=== PATIENT | female | born 2005 | race Two or more races ===

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

== ENCOUNTER → 2024-05-21 | Outpatient (CLI) | payer BC | LOC: M PLAIMG 08:48 | PROVIDERS: ATTEND Nurse Practitioner Family | DX: M25.561 Pain in right knee (principal); S83.241A Other tear of medial meniscus, current injury, right knee, initial encounter; X58.XXXA Exposure to other specified factors, initial encounter; Y92.9 Unspecified place or not applicable; Y93.9 Activity, unspecified; Y99.9 Unspecified external cause status ==